=== PATIENT | male | born 1950 | race Caucasian/White ===

== ENCOUNTER 2023-08-26 15:46 | Inpatient (IN) ==
[2023-08-26] MEDS ORDERED: Lorazepam PYXIS KEY PRN (18:32)
[2023-08-26] MEDS ORDERED: LORazepam 2 mg VIAL 1 ml IV PUSH SCH (19:00)
[2023-08-26 19:06] LABS: ABS Lymphocytes 0.9 10^3/uL (1.0-4.8); ABS Monocytes 0.4 10^3/uL (0.0-1.1); ABS Neutrophils 9.9 10^3/uL (1.5-7.6); Hematocrit 25.4 % (38-53); Hemoglobin 8.5 g/dL (13.2-16.3); Lymphocyte % 7.6 %; Mean Corpuscular Hemoglobin 31.5 pg (27-33); Mean Corpuscular Hgb Conc 33.3 g/dL (31-36); Mean Corpuscular Volume 94.4 fL (80-97); Mean Platelet Volume 7.4 fL (7.5-11.2); Platelet Count 299 10^3/uL (150-450); Red Blood Count 2.69 10^6/uL (4.06-5.63); Red Cell Distribution Width 14.6 % (12-17); White Blood Count 11.2 10^3/uL (3.6-10.2)
[2023-08-26 19:10] LABS: INR 1.37 (0.83-1.13)
[2023-08-26] MEDS: Octreotide Acetate 500 MCG in NS 0.9% 100 ml BAG 100 ML IV SCH (19:19)
[2023-08-26] MEDS: Pantoprazole 80 mg in NS BAG 80 MG/250 ML BAG IV SCH (19:19)
[2023-08-26 19:50] LABS: ALT 13 U/L (7-52); Albumin 3.2 g/dL (3.2-5.2); Albumin/Globulin Ratio 1.3 (1-3); Alkaline Phosphatase 76 U/L (35-149); Anion Gap 9 mmol/L (2-16); Blood Urea Nitrogen 51 mg/dL (6-24); CO2 Carbon Dioxide 23 mmol/L (22-32); Calcium 7.9 mg/dL (8.6-10.3); Chloride 103 mmol/L (101-111); Creatinine, Serum 1.67 mg/dL (0.67-1.17); Globulin 2.5 g/dL (2-4); Glucose 157 mg/dL (70-100); Sodium 135 mmol/L (135-145); Total Bilirubin 0.5 mg/dL (0.2-1.0); Total Protein 5.7 g/dL (6.4-8.9); eGFR CKD-EPI 43.2 (>60)
[2023-08-26] MEDS: cefTRIAXone 1 gm/50 mL D5W 1 GM/50 ML BAG IV SCH (19:55)
[2023-08-26] MEDS ORDERED: Acetaminophen IV 1 GM/100ML 1,000 MG/100 ML BAG IV PRN (20:24)
[2023-08-26] MEDS: Lactated Ringers 1000 ml BAG 1,000 ML IV SCH (20:56)
[2023-08-26] MEDS: Lactulose 30 ml UDC PO ONE (21:08)
[2023-08-26] MEDS: Lactulose 30 ml UDC PO SCH (21:17)
[2023-08-27 05:31] LABS: ABS Lymphocytes 1.2 10^3/uL (1.0-4.8); ABS Monocytes 1.3 10^3/uL (0.0-1.1); ABS Neutrophils 10.9 10^3/uL (1.5-7.6); Hemoglobin 7.6 g/dL (13.2-16.3); Lymphocyte % 9.1 %; Mean Corpuscular Hgb Conc 33.1 g/dL (31-36); Mean Corpuscular Volume 93.6 fL (80-97); Mean Platelet Volume 7.2 fL (7.5-11.2); Platelet Count 280 10^3/uL (150-450); Red Blood Count 2.46 10^6/uL (4.06-5.63); Red Cell Distribution Width 14.2 % (12-17); White Blood Count 13.4 10^3/uL (3.6-10.2)
[2023-08-27 06:12] LABS: Calcium 7.7 mg/dL (8.6-10.3); Creatinine, Serum 1.48 mg/dL (0.67-1.17); Potassium 5.1 mmol/L (3.5-5.0)
[2023-08-27] MEDS: PTO: BUDESONIDE/GLYCOPYR/FORMOTEROL MDI (NF) INH SCH (09:57)
[2023-08-27] MEDS: Nicotine PATCH 7 MG/24 HR PATCH TRANSDERM SCH (10:03)
[2023-08-27 10:54] LABS: Hepatitis C Antibody Negative (Negative)
[2023-08-27] MEDS: D5NS 0.9% 1000 ml BAG 1,000 ML IV SCH (12:06)
[2023-08-27 12:16] LABS: Hemoglobin 8.6 g/dL (13.2-16.3)
[2023-08-27] MEDS: Nicotine PATCH 21 MG/24 HR PATCH TRANSDERM SCH (17:20)
[2023-08-27] MEDS ORDERED: Octreotide Acetate 500 MCG/ML 1 ML VIAL IV ONE (20:00)
[2023-08-27 23:59] VITALS: BP 158/71
== END 2023-08-27 23:30 | disposition short-term general hospital (02) | DRG 369 ==
LOC: ICU 17:46
PROVIDERS: ADMIT Internal Medicine Pulmonary Disease; ATTEND Internal Medicine Pulmonary Disease